=== PATIENT | female | born 1940 | race Caucasian/White ===

== ENCOUNTER 2021-05-25 09:30 | Emergency (ER) | payer MEDICARE, OTHER ==
[~2021-05-25] VITALS: Ht 162.6 cm; Wt 79.8 kg
--- NOTE | 2021-05-25 09:30 | NUR ---
Pt brought in to bed 8. A&Ox4. VSS. Pt on non-rebreather 15L. Pt slightly pale and bilateral fingers slightly blue. Skin is intact. Bed in lowest position and connected to ekg monitor tech.
[2021-05-25 09:34] VITALS: BP_SYST 103
--- NOTE | 2021-05-25 09:45 | NUR ---
Dr. Newman at bedside.
--- NOTE | 2021-05-25 10:00 | NUR ---
EKG done at bedside. ABG's being done by RT at bedside.
--- NOTE | 2021-05-25 10:30 | NUR ---
Pt removed from non-rebreather and placed on Nasal Cannula 4l. O2 at 99%.
--- NOTE | 2021-05-25 12:00 | NUR ---
24g IV placed on right forearm using aseptic technique and no infiltration noted.
[2021-05-25 12:17] LABS: ANION GAP 18 (5-15); CALCIUM 7.3 mg/dL (8.4-11.0); CHLORIDE 98 mmol/L (98-107); CREATININE 4.38 mg/dL (0.55-1.30); GLUCOSE 151 mg/dL (70-99); SODIUM SERUM 137 mmol/L (136-145); UREA NITROGEN, BLOOD 49 mg/dL (8-21)
[2021-05-25 12:18] LABS: BASOPHILS % (AUTO) 0.8 % (0.0-2.0); EOSINOPHILS # (AUTO) 0.1 K/uL (0.0-0.4); HEMATOCRIT 37.3 % (36-48); HEMOGLOBIN 11.8 g/dL (12.0-16.0); LYMPHOCYTES # (AUTO) 0.7 K/uL (1.0-5.5); LYMPHOCYTES % (AUTO) 12.4 % (20.5-51.5); MEAN CORPUSCULAR HEMOGLOBIN 30 pg (27-31); MEAN CORPUSCULAR HGB CONC 32 % (32-36); MEAN CORPUSCULAR VOLUME 96 fL (79.0-98.0); MONOCYTES # (AUTO) 0.6 K/uL (0.0-1.0); MONOCYTES % (AUTO) 10.6 % (1.7-9.3); NEUTROPHILS # (AUTO) 4.5 K/uL (1.8-7.7); NEUTROPHILS % (AUTO) 75.2 % (40.0-70.0); RED BLOOD CELL COUNT(AUTO) 3.89 MIL/uL (4.2-6.2); RED CELL DISTRIBUTION WIDTH 19.2 % (9.0-15.0)
[2021-05-25 12:24] LABS: POTASSIUM 5.3 mmol/L (3.5-5.1)
[2021-05-25 12:25] LABS: ALANINE AMINOTRANSFERASE 30 U/L (12-78); ALBUMIN 3.5 g/dL (3.4-4.8); ASPARTATE AMINOTRANSFERASE 52 U/L (10-37); INR 1.4 (0.8-1.2); TOTAL BILIRUBIN 2.2 mg/dL (0.0-1.0)
--- NOTE | 2021-05-25 12:29 | NUR ---
Kylee from lab called to report a critical lab value which was Troponin high sensitivity of 2452. DR. Newman made aware.
[2021-05-25 12:39] LABS: PLATELET COUNT (AUTO) 80 K/uL (130-430)
--- NOTE | 2021-05-25 12:46 | NUR ---
Covid swab done and sent to lab.
[2021-05-25] MEDS ORDERED: ASPIRIN 81 MG TAB.CHEW PO ONE (13:00)
[2021-05-25] MEDS ORDERED: MORPHINE 4 MG INJ. 4 MG/ML VIAL IVP ONE (14:00)
[2021-05-25] MEDS ORDERED: ONDANSETRON HCL 4 MG/2 ML VIAL IVP ONE (14:00)
--- NOTE | 2021-05-25 14:13 | NUR ---
Report given to medical charge entry specialist at [facility] in the ED at . Accepting physician is Dr. Terry. Cy RIDLEY arriving at 1430.
[2021-05-25 15:02] VITALS: BP_SYST 132
--- NOTE | 2021-05-25 15:04 | NUR ---
Patient to be transferred to ED [facility]. Is being transferred due to higher level of care. Receiving facility has accepting physician and available space. ER physician has signed transfer form. Patient or responsible libertarian has agreed to transfer and signed form. Patient belongings inventoried and will be sent with patient. Copy of nursing notes, lab reports, EKG, Physicians Orders and X-rays to be sent with patient. Report called to charge gang weigher at receiving facility. Receiving physician is Dr. Terry. [facility] ambulance service has been called for transfer. ETA is 1500.
== END 2021-05-25 15:02 ==
LOC: SED 09:30
DX: I24.9 Acute ischemic heart disease, unspecified (principal); R55 Syncope and collapse; E11.9 Type 2 diabetes mellitus without complications; Z88.8 Allergy status to other drugs, medicaments and biological substances; Z20.822 Contact with and (suspected) exposure to COVID-19
CPT/HCPCS: 36415; 36600; 71045; 80053; 82803; 83605; 84484; 85025; 85379; 85610; 85730; 87040; 87426; 93005; 96374; 96375; 99291; J2270; J2405